=== PATIENT | female | born 1960 | race Caucasian/White ===

== ENCOUNTER → 2016-08-29 | Outpatient (CLI) | payer BC ==
[2016-08-29 07:41] LABS: BASOPHILS % (AUTO) 0 % (0-2); EOSINOPHILS # (AUTO) 0.3 10^3uL; EOSINOPHILS % (AUTO) 3 % (0-4); LYMPHOCYTES # (AUTO) 2.5 X10^3; MEAN CORPUSCULAR HEMOGLOBIN 30.3 PG (26.0-34.0); MEAN CORPUSCULAR HGB CONC 34.6 g/dL (31.0-37.0); MEAN CORPUSCULAR VOLUME 88 FL (80-100); MEAN PLATELET VOLUME 9.5 FL (6.0-9.5); MONOCYTES # (AUTO) 0.6 X10^3; MONOCYTES % (AUTO) 7 % (3-11); NEUTROPHILS # (AUTO) 5.6 X10^3; NEUTROPHILS % (AUTO) 62 % (51-67); PLATELET COUNT 242 10^3uL (150-450); WHITE BLOOD COUNT 9.05 10^3uL (4.0-11.0)
[2016-08-29 08:51] LABS: ALBUMIN 4.4 g/dL (3.4-5.0); ALKALINE PHOSPHATASE 124 U/L (38-126); BUN/CREATININE RATIO 20 (10-20); CALCULATED IONIZED CALCIUM 3.9 mg/dL (3.8-4.6); TOTAL PROTEIN 7.9 g/dL (6.4-8.5)
== END ==
LOC: LAB 07:28
PROVIDERS: ATTEND Internal Medicine
DX: I10 Essential (primary) hypertension (principal); R74.0 Nonspecific elevation of levels of transaminase and lactic acid dehydrogenase [LDH]; E11.9 Type 2 diabetes mellitus without complications; E03.8 Other specified hypothyroidism
CPT/HCPCS: 36415; 80053; 83036; 84443; 85025; 86140

== ENCOUNTER → 2016-11-20 | Outpatient (CLI) | payer BC ==
[2016-11-20 09:45] LABS: BASOPHILS % (AUTO) 0 % (0-2); EOSINOPHILS # (AUTO) 0.1 10^3uL; EOSINOPHILS % (AUTO) 0 % (0-4); LYMPHOCYTES # (AUTO) 1.8 X10^3; MEAN CORPUSCULAR HEMOGLOBIN 29.7 PG (26.0-34.0); MEAN CORPUSCULAR HGB CONC 33.2 g/dL (31.0-37.0); MEAN CORPUSCULAR VOLUME 89 FL (80-100); MEAN PLATELET VOLUME 9.6 FL (6.0-9.5); MONOCYTES # (AUTO) 0.6 X10^3; MONOCYTES % (AUTO) 5 % (3-11); NEUTROPHILS # (AUTO) 8.9 X10^3; NEUTROPHILS % (AUTO) 78 % (51-67); PLATELET COUNT 250 10^3uL (150-450); WHITE BLOOD COUNT 11.36 10^3uL (4.0-11.0)
--- NOTE | 2016-11-20 10:21 | Diagnostic Imaging Report ---
SHOULDER, RIGHT, 2 VIEWS COMPARISON: None available. INDICATION: Right shoulder pain. TECHNIQUE: Internally rotated AP, transscapular Y, Grashey and axillary views. FINDINGS: No acute or healing fracture. Femoral head remains nina-spherical without evidence of osteonecrosis. Glenohumeral joint space is maintained. Globular mineralization along the superior aspect of the greater tuberosity is compatible with calcific tendinitis/tendinosis of the rotator cuff. Acromioclavicular joint is normal. IMPRESSION: 1. Calcific tendinosis/tendinitis of the rotator cuff, likely supraspinatus. Dictated by: Dictated on workstation # [id number]
[2016-11-20 10:52] LABS: ERYTHROCYTE SEDIMENTATION RT* 29 mm/hr (0-21)
== END ==
LOC: LAB 08:55 → EDSTATUS 09:10 → LAB 09:10
PROVIDERS: ATTEND Internal Medicine
DX: E11.9 Type 2 diabetes mellitus without complications (principal); I10 Essential (primary) hypertension; M25.511 Pain in right shoulder; M75.31 Calcific tendinitis of right shoulder
CPT/HCPCS: 36415; 73030; 84550; 85025; 85652; 86140